=== PATIENT | female | born 1960 | race Caucasian/White ===

== ENCOUNTER → 2018-02-25 | Outpatient (CLI) | payer BC, OTHER ==
[~2018-02-25] MED LIST: ACCUNEB0.63 MG/3 IH; AMLODIPINE BESYL5 MG OR; ASPIRIN EC81 M1 OR; COQ-10100 MG OR; DESYREL100 MG OR; FLOVENT HFA 2220 MC1 IH; IBUPROFEN 200200 M1 OR; INDAPAMIDE1.25 MG OR; LIPITOR10 MG OR; PREMARIN0.9 M1 OR; SYNTHROID100 MCG OR; TOPAMAX 25 MG T25 M1 OR; VENTOLIN17 GM IH; WELLBUTRIN XL300 M1 OR
== END ==
LOC: RAD 13:55
DX: R91.1 Solitary pulmonary nodule (principal)